=== PATIENT | male | born 1990 | race Two or more races ===

== ENCOUNTER 2022-01-21 07:26 | Emergency (ER) | payer MEDICAID ==
[~2022-01-21] VITALS: Ht 182.9 cm; Wt 95.5 kg
[2022-01-21 07:29] VITALS: BP 171/110
== END 2022-01-21 09:39 | disposition home or self-care (01) ==
LOC: EMS 07:30
DX: Z48.816 Encounter for surgical aftercare following surgery on the genitourinary system (principal); I10 Essential (primary) hypertension
CPT/HCPCS: 99281; Z7502